=== PATIENT | male | born 1995 | race Caucasian/White ===

== ENCOUNTER 2023-09-04 10:44 | Emergency (ER) | payer MEDICAID ==
[~2023-09-04] VITALS: Ht 172.7 cm; Wt 83.9 kg
[2023-09-04 11:18] VITALS: BP 114/68; PULSE 78; RESP 20; TEMP 98.6; O2SAT 100
[2023-09-04] MEDS: buprenorphine HCL 2 MG sublingual tab SL ONE (11:46)
[2023-09-04] MEDS ORDERED: BUPR1FIL2 SL (13:12)
[2023-09-04 13:25] VITALS: BP 114/68; PULSE 78; RESP 20; TEMP 98.6; O2SAT 100
== END 2023-09-04 13:25 | disposition home or self-care (01) ==
LOC: MED 10:44
DX: F11.90 Opioid use, unspecified, uncomplicated (principal); F12.90 Cannabis use, unspecified, uncomplicated; Z79.899 Other long term (current) drug therapy; Z88.0 Allergy status to penicillin
CPT/HCPCS: 99283